=== PATIENT | female | born 1990 | race Caucasian/White ===

== ENCOUNTER 2017-10-26 09:57 | Outpatient (CLI) | payer OTHER | END 2017-10-26 15:54 | disposition home or self-care (01) | LOC: SONOGRAMA 09:57 | DX: R10.2 Pelvic and perineal pain (principal) ==

== ENCOUNTER 2017-11-09 14:15 | Inpatient (IN) | payer OTHER ==
[~2017-11-09] VITALS: Ht 165.1 cm; Wt 71.7 kg
[2017-11-25] MEDS ORDERED: PRENATAL 19 TA1 EACH PO (22:01)
== END 2017-11-28 16:25 | disposition home or self-care (01) | DRG 775 ==
LOC: SURG-SUITE 11-25 21:56 → LDR 11-25 21:56 → OB/GYN 11-26 08:12 → SURG-SUITE 11-26 11:06 → OB/GYN 12-08 08:00
PROC: 4A1HXCZ Monitoring of Products of Conception, Cardiac Rate, External Approach (ICD-10-PCS; 2017-11-25)
PROC: 0KQM0ZZ Repair Perineum Muscle, Open Approach (ICD-10-PCS; principal; 2017-11-26)
PROC: 10E0XZZ Delivery of Products of Conception, External Approach (ICD-10-PCS; 2017-11-26)
DX: O70.1 Second degree perineal laceration during delivery (principal); Z37.0 Single live birth; Z3A.38 38 weeks gestation of pregnancy

== ENCOUNTER 2023-01-31 05:59 | Inpatient (IN) | payer OTHER ==
[~2023-01-31] VITALS: Ht 165.1 cm; Wt 70.3 kg
[~2023-01-31 05:59] MED LIST: PRENATAL 19 TA1 EACH PO
[2023-01-31 07:19] LABS: HEMATOCRIT 37.6 % (36.0-45.00); HEMOGLOBIN 12.7 g/dL (12.0-15.00); MEAN CELL VOLUME 87.8 fL (80.00-100.00); MEAN CORPUSCULAR HEMOGLOBIN 29.6 pg (27.00-32.0); MEAN CORPUSCULAR HGB CONC 33.8 g/dl (32.0-36.0); PLATELET COUNT 219 K/uL (150-450); RED BLOOD COUNT 4.28 M/uL (4.00-6.00); RED CELL DISTRIBUTION WIDTH 14.1 % (11.5-14.5)
[2023-01-31 07:38] LABS: INR < 0.93; PARTIAL THROMBOPLASTIN TIME 27.9 SECONDS (22.0-34.0); PROTHROMBIN TIME 9.8 SECONDS (9.0-11.5)
[2023-01-31 07:51] LABS: BILIRUBIN TOTAL 0.45 mg/dL (0.3-1.2); CALCIUM 9.4 mg/dL (8.5-10.1); CREATININE SERUM 0.57 mg/dL (0.55-1.02); GFR 121.41; GLOBULINA 3.9 G/DL (2.4-3.5); POTASSIUM 4.24 mEq/L (3.5-5.1); TOTAL PROTEIN 6.9 gm/dL (6.4-8.2)
[2023-01-31 13:13] LABS: ABG PH 7.392 (7.35-7.45); ABG PO2 43.6 mmHg (80-100); ABG pCO2 36.8 mmHg (35-45); BASE EXCESS -2.5 mmol/l; BICARBONATE 21.9 mmol/l (23-25); SaO2 78.5 %; o2 21 %
== END 2023-02-02 14:55 | disposition home or self-care (01) | DRG 807 ==
LOC: OB/GYN 05:59 → LDR 05:59 → OB/GYN 08:43
PROVIDERS: ADMIT Obstetrics & Gynecology Maternal & Fetal Medicine; ATTEND Obstetrics & Gynecology Maternal & Fetal Medicine
PROC: 10E0XZZ Delivery of Products of Conception, External Approach (ICD-10-PCS; principal; 2023-01-31)
PROC: 0KQM0ZZ Repair Perineum Muscle, Open Approach (ICD-10-PCS; 2023-01-31)
PROC: 4A1HXCZ Monitoring of Products of Conception, Cardiac Rate, External Approach (ICD-10-PCS; 2023-01-31)
DX: O70.1 Second degree perineal laceration during delivery (principal); Z37.0 Single live birth; Z3A.36 36 weeks gestation of pregnancy; Z20.822 Contact with and (suspected) exposure to COVID-19